=== PATIENT | female | born 1995 | race Caucasian/White ===

== ENCOUNTER 2019-04-22 15:17 | Emergency (ER) | payer BC ==
[2019-04-22 15:40] VITALS: BP 127/85
[2019-04-22 15:58] LABS: BASOPHILS # (AUTO) 0.1 10^3/uL (0.0-0.1); BASOPHILS % (AUTO) 0.6 %; EOSINOPHILS # (AUTO) 0.3 10^3/uL (0.0-0.7); HGB - HEMOGLOBIN 13.2 g/dL (12.0-16.0); LYMPHOCYTES % (AUTO) 24.5 %; MEAN CORPUSCULAR HEMOGLOBIN 32.1 pg (27.0-31.0); MEAN CORPUSCULAR HGB CONC 33.9 g/dL (32.0-36.0); MEAN CORPUSCULAR VOLUME 94.6 fL (81.0-99.0); MEAN PLATELET VOLUME 8.2 fL (7.9-10.8); MONOCYTES # (AUTO) 0.6 10^3/uL (0.0-1.0); MONOCYTES % (AUTO) 6.8 %; NEUTROPHILS # (AUTO) 5.4 10^3/uL (1.5-6.6); NEUTROPHILS % (AUTO) 64.7 %; PLT - PLATELET COUNT 229 10^3/uL (130-450); RED BLOOD COUNT 4.11 10^6/uL (4.20-5.40); RED CELL DISTRIBUTION WIDTH 12.9 % (12.0-15.0); WHITE BLOOD COUNT 8.3 x10^3/uL (4.8-10.8)
[2019-04-22 16:11] LABS: ALBUMIN 4.3 g/dL (3.2-5.5); ALBUMIN/GLOBULIN RATIO 1.3 (1.0-2.2); BILIRUBIN,TOTAL 0.9 mg/dL (0.2-1.0); CALCIUM 9.2 mg/dL (8.5-10.3); CREATININE 0.6 mg/dL (0.4-1.0); TOTAL PROTEIN 7.6 g/dL (6.7-8.2)
--- NOTE | 2019-04-22 17:16 | ED Physician Documentation ---
PD HPI FEMALE - Stated complaint Stated Complaint: FEMALE - POST OP - Chief complaint Chief Complaint: Abd Pain - History obtained from History obtained from: Patient - History of Present Illness Contributing factors: Recently seen: Clinic - Additional information Additional information: This is a 24-year-old who presents with complaints that on March 21 she made the decision to terminate a at [facility]. They treated her with a dose of medication in the office and then sent her home with a second dose today but after she got home she started to have second thoughts so waited over the 24-hour period before she took the second dose. After she had taken that second dose she got an episode where she was extremely lightheaded her ears were ringing she actually fell to the ground and a near syncopal episode. She was taken to the emergency department at [place]. She said at the time she had a lot of heavy vaginal bleeding but she was kind out of it so she is not even sure how much she bled or whether or not she passed any tissue and then it just seem to stopped. She was 6 weeks 3 days by ultrasound the time of the termination. A week ago she decided to do another test was a faint positive line and then she tried again today and was a definite positive urine test so she called and was told to come to the emergency department. She has been having some lower abdominal cramping. She took a test a week ago because she said that her breasts were still very tender and she felt like the symptoms from the had never really gone away even after the termination. Review of Systems Constitutional: denies: Fever GI: reports: Abdominal Pain (Cramping) : reports: Missed period. denies: Vaginal bleeding Endocrine: reports: Other (Breasts are tender) PD PAST MEDICAL HISTORY - Past Surgical History Past Surgical History: Yes HEENT: Tonsil/Adenoidectomy - Present Medications Home Medications: Ambulatory Orders Medication Instructions Recorded Confirmed Dextroamphetamine/Amphetamine 30 mg PO DAILY 04/22/19 04/22/19 [Adderall 30 mg Tablet] - Allergies Allergies/Adverse Reactions: Allergies Allergy/AdvReac Type Severity Reaction Status Date / Time amoxicillin Allergy Severe Unknown Verified 04/22/19 15:30 Penicillins Allergy Severe Unknown Verified 04/22/19 15:30 - Social History Does the pt smoke?: No Smoking Status: Never smoker Does the pt drink ETOH?: No Does the pt have substance abuse?: No - Immunizations Immunizations are current?: No Immunizations: TDAP >10years/unknown PD ED PE NORMAL - Vitals Vital signs reviewed: Yes - General General: Alert and oriented X 3, No acute distress, Well developed/nourished - HEENT HEENT: Atraumatic, Moist mucous membranes - Cardiac Cardiac: RRR - Respiratory Respiratory: No respiratory distress - Female Female : [employer] present, Other (Cervix is closed. There is no vaginal bleeding. On bimanual examination the uterus is not felt to be enlarged and there is no adnexal tenderness.) - Derm Derm: Normal color, Warm and dry, No rash - Neuro Neuro: Alert and oriented X 3, No motor deficit, No sensory deficit, Normal speech - Psych Psych: Normal mood, Normal affect Results - Vitals Vitals: Vital Signs - 24 hr 04/22/19 15:30 Temperature 37 C Heart Rate 84 Respiratory 18 Rate Blood Pressure 127/85 H O2 Saturation 100 Oxygen O2 Source Room air - Labs Labs: Laboratory Tests 04/22/19 04/22/19 04/22/19 15:50 15:52 15:52 WBC 8.3 RBC 4.11 L Hgb 13.2 Hct 38.9 MCV 94.6 MCH 32.1 H MCHC 33.9 RDW 12.9 Plt Count 229 MPV 8.2 Neut # (Auto) 5.4 Lymph # (Auto) 2.0 [place] # (Auto) 0.6 Eos # (Auto) 0.3 Baso # (Auto) 0.1 Absolute Nucleated RBC 0.00 Nucleated RBC % 0.0 Sodium 137 Potassium 3.4 L Chloride 102 Carbon Dioxide 24 Anion Gap 11.0 BUN 12 Creatinine 0.6 Estimated GFR (MDRD) 122 Glucose 89 Calcium 9.2 Total Bilirubin 0.9 AST 28 ALT 19 Alkaline Phosphatase 47 Total Protein 7.6 Albumin 4.3 Globulin 3.3 Albumin/Globulin Ratio 1.3 Lipase 52 H HCG, Quant Urine Color YELLOW Urine Clarity CLEAR Urine pH 5.5 Ur Specific [place] >=1.030 H Urine Protein NEGATIVE Urine Glucose (UA) NEGATIVE Urine Ketones 40 H Urine Occult Blood NEGATIVE Urine Nitrite NEGATIVE Urine Bilirubin NEGATIVE Urine Urobilinogen 0.2 (NORMAL) Ur Leukocyte Esterase NEGATIVE Ur Microscopic Review NOT INDICATED Urine Culture Comments NOT INDICATED Urine HCG, Qual POSITIVE Blood Type 04/22/19 04/22/19 15:52 17:15 WBC RBC Hgb Hct MCV MCH MCHC RDW Plt Count MPV Neut # (Auto) Lymph # (Auto) [place] # (Auto) Eos # (Auto) Baso # (Auto) Absolute Nucleated RBC Nucleated RBC % Sodium Potassium Chloride Carbon Dioxide Anion Gap BUN Creatinine Estimated GFR (MDRD) Glucose Calcium Total Bilirubin AST ALT Alkaline Phosphatase Total Protein Albumin Globulin Albumin/Globulin Ratio Lipase HCG, Quant 48232.00 Urine Color Urine Clarity Urine pH Ur Specific [place] Urine Protein Urine Glucose (UA) Urine Ketones Urine Occult Blood Urine Nitrite Urine Bilirubin Urine Urobilinogen Ur Leukocyte Esterase Ur Microscopic Review Urine Culture Comments Urine HCG, Qual Blood Type B POSITIVE PD MEDICAL DECISION MAKING - ED course Complexity details: d/w patient, d/w family ED course: The patient's quantitative hCG was over 34,000. I have ordered a pelvic ultrasound. I am still waiting on the Rh screen. Plan to turn care over for follow-up on the ultrasound. Departure - Departure Disposition: Home, Self Care Clinical Impression: Incomplete miscarriage Condition: Good Follow-Up: Tesha Bowles MD [Provider Admit Priv/Credential] - (Call for an appt tomorrow) Kenn Barth DO [Provider Admit Priv/Credential] - (Call for an appt tomorrow) Comments: Your ultrasound today shows a likely miscarriage, as there is no heartbeat seen in the fetus, and there is some bleeding In the uterus. However your level is still quite high, and it is possible that this just recently failed, or has abnormal growth. I think you need to be seen by an OB provider soon as possible, the OB clinic here states that they should be able to fit you in to the schedule tomorrow. Please call first thing in the morning for an appointment. If you are developing severe bleeding, severe pain that is not managed by [id number] medication such as Tylenol and ibuprofen, or any other concerning symptoms return to the emergency department Discharge Date/Time: 04/22/19 21:47
[2019-04-22 17:41] LABS: BILIRUBIN,URINE NEGATIVE (NEGATIVE); GLUCOSE, URINE (UA) NEGATIVE (NEGATIVE); KETONES,URINE (UA) 40 mg/dL (NEGATIVE); LEUKOCYTE ESTERASE, URINE NEGATIVE (NEGATIVE); NITRITE,URINE NEGATIVE (NEGATIVE); OCCULT BLOOD,URINE NEGATIVE (NEGATIVE); PH,URINE 5.5 PH (5.0-7.5); PROTEIN,URINE NEGATIVE (NEGATIVE); UROBILINOGEN,URINE 0.2 (NORMAL) E.U./dL (NORMAL)
[2019-04-22 17:45] LABS: CLARITY,URINE CLEAR (CLEAR); HCG UR QUAL POSITIVE
--- NOTE | 2019-04-22 20:19 | Ultrasound Report ---
Reason: Failed chemical Procedure Date: 04/22/2019 Accession Number: [id number] / [id number] Procedure: US - OB First Trimester CPT Code: Final Report FULL RESULT: EXAM: FIRST TRIMESTER OBSTETRIC ULTRASOUND (Less than 11 weeks) EXAM DATE: 04/22/2019 07:18 PM. CLINICAL HISTORY: Failed chemical . LMP: 02/04/2020. COMPARISONS: US OB < 14 WEEKS SINGLE OR FIRST GESTATION 03/15/2019 7:03 PM. TECHNIQUE: Transabdominal and transvaginal ultrasound examination with static image documentation. CLINICAL DATES: EGA 11 weeks 1 day with SIMON 11/10/2019 based on LMP. ASSESSMENT: Gestational Sac: Single intrauterine. Mean gestational sac diameter: 43 mm = 9 weeks 6 days. Embryo: CRL (crown-rump length) 5 mm = 6 weeks 1 day. Cardiac activity: No cardiac activity. Yolk sac: Not seen. Amniotic fluid: Not accurately assessed at this gestational age. Early placenta: Not visible at this gestational age. Other: Large subchorionic hemorrhage encircles at least two-thirds of the gestational sac site conference.. MATERNAL STRUCTURES: Uterus: Anteverted. Unremarkable. Cervix: Closed. Right Ovary/Adnexa: The ovary measures 3.3 x 3.2 x 2.8 cm, volume 15.7 cc. Right corpus luteal cyst.. Left Ovary/Adnexa: The ovary measures 2.7 1.3 x 1 cm, volume 1.8 cc. Unremarkable. Free Fluid: None. Other: None. IMPRESSION: 1. Single intrauterine gestational sac and pole measuring 5 mm. No yolk sac identified. No cardiac activity. Large subchorionic hemorrhage. Findings consistent with of uncertain viability, but poor prognosis. Recommend [facility] consultation and follow-up ultrasound in 7 days. RADIA
== END 2019-04-22 21:47 | disposition home or self-care (01) ==
LOC: ED 15:17
DX: O07.39 Failed attempted termination of pregnancy with other complications (principal); R10.9 Unspecified abdominal pain
CPT/HCPCS: 36415; 76801; 76817; 80053; 81001; 81003; 81025; 83690; 84702; 85025; 86900; 86901; 87086; 99282; 99283

== ENCOUNTER 2019-04-24 08:43 | Day surgery (SDC) | payer BC ==
[2019-04-24] MEDS ORDERED: DEXAMETHASONE 4 MG/ML VIAL IVP ONE (08:44)
[2019-04-24] MEDS ORDERED: LIDOCAINE 2% 10 ML MDV SUBQ ONE (08:44)
[2019-04-24] MEDS ORDERED: OXYTOCIN 10 UNIT/ML VIAL IV ONE (08:44)
[2019-04-24] MEDS ORDERED: ePHEDrine 50 MG/ML VIAL IVP ONE (08:44)
[2019-04-24] MEDS ORDERED: ACETAMINOPHEN 1,000 MG/100 ML VIAL IV ONE (08:44)
[2019-04-24] MEDS ORDERED: fentaNYL 100 MCG/2 ML VIAL IVP ONE (08:44)
[2019-04-24] MEDS ORDERED: MIDAZOLAM 2 MG/2 ML VIAL IVP ONE (08:44)
[2019-04-24] MEDS ORDERED: PROPOFOL 200 MG/20 ML VIAL IVP ONE (08:44)
[2019-04-24] MEDS ORDERED: LACTATED RINGERS 1,000 ML IV ONE ×2 (08:55→13:22)
[2019-04-24] MEDS ORDERED: LIDOCAINE 1%-EPI 1:100000 20 ML MDV ONE (09:06)
--- NOTE | 2019-04-24 09:38 | ANESTHESIA ---
Pre-Anesthesia VS, & Labs - Diagnosis missed - Procedure suction DnC Vital Signs: Temp Pulse Resp BP Pulse Ox 37.3 C 81 14 117/78 99 04/24/19 08:55 04/24/19 08:55 04/24/19 08:55 04/24/19 08:55 04/24/19 08:55 Height 5 ft 3 in Body Mass Index 24.4 - Is Patient ?: No Home Medications and Allergies Dextroamphetamine/Amphetamine [Adderall 30 mg Tablet] 30 mg PO DAILY 04/22/19 Allergies/Adverse Reactions: Allergies Allergy/AdvReac Type Severity Reaction Status Date / Time amoxicillin Allergy Severe Unknown Verified 04/24/19 09:36 Penicillins Allergy Severe Unknown Verified 04/24/19 09:36 Anes History & Medical History - Anesthetic History Anesthesia Complications: reports: No previous complications Family history of Anesthesia Complications: Denies Family history of Malignant Hyperthermia: Denies - Medical History Cardiovascular: reports: None Pulmonary: reports: None Gastrointestinal: reports: None Urinary: reports: Incontinence Neuro: reports: None Musculoskeletal: reports: None Endocrine/Autoimmune: reports: None Blood Disorders: reports: None Skin: reports: None Smoking Status: Never smoker Psychosocial: reports: Alcohol (2 to 3 beers a day) - Surgical History Eyes Ears Nose Throat (EENT): Tonsil/Adenoidectomy Exam General: Alert, Oriented x3, Cooperative, No acute distress Dental: WNL Mouth Openin Fingerbreadth Neck Mobility: Normal Mallampati classification: II Thyromental Distance: 4-6 cm Respiratory: Lungs clear, Normal breath sounds, No respiratory distress, No accessory muscle use Cardiovascular: Regular rate, Normal S1, Normal S2, No murmurs Abdomen: Normal bowel sounds, Soft, No tenderness, No hepatospenomegaly, No masses Extremities: No clubbing, No cyanosis, No edema, Normal pulses, No tenderness/swelling Neurological: Normal gait, Normal speech, Strength at 5/5 X4 ext, Normal tone, Sensation intact, Cranial nerves 3-12 NL, Reflexes 2+ Mental/Cognitive Status: Alert/Oriented X3, Normal for patient Cognitive Status: Within normal limits Plan Anesthesia Type: General Consent for Procedure(s) Verified and Reviewed: Yes Code Status: Attempt Resuscitation ASA classification: 1-Healthy patient Is this case an emergency?: No
[2019-04-24 09:45] LABS: BASOPHILS % (AUTO) 0.8 %; EOSINOPHILS # (AUTO) 0.4 10^3/uL (0.0-0.7); EOSINOPHILS % (AUTO) 7.9 %; HGB - HEMOGLOBIN 11.8 g/dL (12.0-16.0); LYMPHOCYTES # (AUTO) 1.8 10^3/uL (1.5-3.5); LYMPHOCYTES % (AUTO) 36.5 %; MEAN CORPUSCULAR HEMOGLOBIN 31.2 pg (27.0-31.0); MEAN CORPUSCULAR HGB CONC 33.1 g/dL (32.0-36.0); MEAN CORPUSCULAR VOLUME 94.2 fL (81.0-99.0); MEAN PLATELET VOLUME 8.3 fL (7.9-10.8); MONOCYTES # (AUTO) 0.3 10^3/uL (0.0-1.0); MONOCYTES % (AUTO) 7.1 %; NEUTROPHILS # (AUTO) 2.3 10^3/uL (1.5-6.6); NEUTROPHILS % (AUTO) 47.5 %; PLT - PLATELET COUNT 183 10^3/uL (130-450); RED BLOOD COUNT 3.78 10^6/uL (4.20-5.40); WHITE BLOOD COUNT 4.8 x10^3/uL (4.8-10.8)
[2019-04-24] MEDS ORDERED: HYDROcod/ACETAM 5/325 MG TABLET PO PRN (13:33)
[2019-04-24] MEDS ORDERED: ONDANSETRON 4 MG/2 ML VIAL IVP PRN (13:33)
[2019-04-24] MEDS ORDERED: LORazepam 0.5 MG TABLET PO PRN (13:38)
[2019-04-24] MEDS ORDERED: DOXYCYCLINE 100 MG TABLET PO SCH (14:00)
[2019-04-24] MEDS ORDERED: DOXYCYCLINE 100 MG TABLET PO ONE (14:35)
[2019-04-24] MEDS ORDERED: HYDROcod/ACETAM 5/325 MG TABLET ONE (14:35)
[2019-04-24] MEDS ORDERED: LORazepam 0.5 MG TABLET ONE (14:43)
[2019-04-24] MEDS ORDERED: ONDANSETRON 4 MG/2 ML VIAL ONE (14:58)
[2019-04-24 15:39] VITALS: BP 110/62
--- NOTE | 2019-04-24 15:46 | OPERATIVE REPORT ---
DATE OF SERVICE: 04/24/2019 Physician: Kenn Barth DO POSTOPERATIVE DIAGNOSIS: Missed . POSTOPERATIVE DIAGNOSIS: Missed PROCEDURE: Suction dilation and evacuation. SURGEON: Kenn Barth DO. ANESTHESIA: General. ESTIMATED BLOOD LOSS: 300 mL. WOUND CLASSIFICATION: 2. COUNTS: Sponge count was correct. Needle count was not indicated. SURGICAL FINDINGS: The uterus sounded initially to a depth of 12 cm. The cervical os was closed. PROCEDURE IN DETAIL: The patient was taken to the operative suite, placed on the surgical table in s upine position. Under general anesthesia, she was placed in Jun stirrups, prepped and draped in th e usual fashion. At this point in time, a timeout took place. Once timeout was completed, The weigh armin speculum was placed in the vaginal vault and the cervix visualized. A single-tooth tenaculum was placed onto the anterior lip of the cervix. The uterus was then sounded to a depth of 12 cm. The c ervix was dilated to 8 mm. An 8 mm suction curette was then extended through the straightened endoce rvical canal into the endometrial cavity. This indeed emptied the contents of the endometrial cavity . Polyp forceps were then used to explore the cavity. There were some other small pieces that the p olyp forceps did evacuate. The suction curette was then again placed into the uterus and no further tissue was evacuated. The uterus was now beginning to clamp down firmly. The single-tooth tenaculum was removed from the anterior lip of the cervix. No signs of bleeding were noted. Hemostasis follo wed. The weighted speculum was removed from the vaginal vault. The vaginal vault was then cleared o f all blood clots and debris. The patient was then taken to recovery room in stable condition. TD: 04/24/2019 14:02
== END 2019-04-24 08:44 | disposition home or self-care (01) ==
LOC: SDS 08:43
PROVIDERS: ATTEND Obstetrics & Gynecology
PROC: 10D17Z9 Manual Extraction of Products of Conception, Retained, Via Natural or Artificial Opening (ICD-10-PCS; principal; 2019-04-24 11:15)
DX: O02.1 Missed abortion (principal)
CPT/HCPCS: 36415; 59820; 85025; A9270; J0131; J7120

== ENCOUNTER 2019-04-26 07:00 | Outpatient (CLI) | payer BC ==
[2019-04-26 18:34] LABS: TRICHOMONAS VAGINALIS DNA NEGATIVE (NEGATIVE)
== END 2019-04-26 23:59 | disposition home or self-care (01) ==
LOC: LAB.R 07:00
PROVIDERS: ATTEND Obstetrics & Gynecology
DX: O02.1 Missed abortion (principal)
CPT/HCPCS: 87491; 87591; 87661

== ENCOUNTER 2019-05-09 08:00 | Outpatient (CLI) | payer BC, MEDICAID ==
[2019-05-10 22:29] LABS: TRICHOMONAS VAGINALIS DNA INDETERMINATE (NEGATIVE)
== END 2019-05-09 23:59 | disposition home or self-care (01) ==
LOC: LAB.R 08:00
PROVIDERS: ATTEND Obstetrics & Gynecology
DX: N73.9 Female pelvic inflammatory disease, unspecified (principal)
CPT/HCPCS: 87491; 87591; 87661

== ENCOUNTER 2019-05-09 19:56 | Outpatient (CLI) | payer BC, MEDICAID ==
[2019-05-09 21:35] LABS: BASOPHILS # (AUTO) 0.1 10^3/uL (0.0-0.1); EOSINOPHILS # (AUTO) 0.5 10^3/uL (0.0-0.7); EOSINOPHILS % (AUTO) 7.2 %; LYMPHOCYTES # (AUTO) 2.8 10^3/uL (1.5-3.5); LYMPHOCYTES % (AUTO) 41.9 %; MEAN PLATELET VOLUME 8.4 fL (7.9-10.8); MONOCYTES # (AUTO) 0.5 10^3/uL (0.0-1.0); MONOCYTES % (AUTO) 7.2 %; NEUTROPHILS # (AUTO) 2.9 10^3/uL (1.5-6.6); NEUTROPHILS % (AUTO) 42.6 %; PLT - PLATELET COUNT 256 10^3/uL (130-450); RED BLOOD COUNT 4.06 10^6/uL (4.20-5.40); RED CELL DISTRIBUTION WIDTH 12.5 % (12.0-15.0); WHITE BLOOD COUNT 6.7 x10^3/uL (4.8-10.8)
--- NOTE | 2019-05-09 21:52 | Ultrasound Report ---
Reason: POSTOPERATIVE PAIN, MISSED Procedure Date: 05/09/2019 Accession Number: [id number] / [id number] Procedure: US - Pelvic w/Transvaginal CPT Code: Final Report FULL RESULT: EXAM: PELVIC ULTRASOUND EXAM DATE: 05/09/2019 09:12 PM. CLINICAL HISTORY: Postoperative pain, missed . Postoperative pain, missed , retained product of conception. COMPARISON: 04/22/2019. TECHNIQUE: Realtime transabdominal pelvic scan performed to identify the uterus and adnexa and as an overview of other pelvic structures, followed by transvaginal scan to provide greater detail of the uterus and adnexa, with static image documentation. FINDINGS: Uterus: 7.3 x 3.8 x 4.8 cm, volume 71 cc. Normal position. Normal overall size and echotexture. Masses: None. Endometrium: Endometrial cavity is distended with heterogeneous fluid with some echogenic internal debris. No internal blood flow. Endometrial complex measures 7 mm in the thickness. Cervix: Unremarkable. Right Ovary: 3.8 x 2.6 x 2.6 cm, volume 13.6 cc. Normal echotexture and blood flow. Left Ovary: 3.2 x 1.9 x 2.2 cm, volume 6.6 cc. 11 mm dominant follicle noted. Normal echotexture and blood flow. Free Fluid: Trace amount of free fluid in the pelvis, within physiologic limits. Other: None. IMPRESSION: Small amount of complex within the endometrial canal, probably postoperative. No internal vascularity noted to suggest retained product of conception. No suspicious adnexal lesion. Physiologic appearance of the ovaries. RADIA The call report notification system was initiated by Dr. Rahul Rebolledo at 09:51 PM on 05/09/2019. The above call report findings were discussed with Dennise Dukes by Dr. Rahul Rebolledo at 09:55 PM on 05/09/2019.
== END 2019-05-09 19:57 | disposition home or self-care (01) ==
LOC: DI 19:56
PROVIDERS: ATTEND Obstetrics & Gynecology
DX: O02.1 Missed abortion (principal); G89.18 Other acute postprocedural pain; N73.9 Female pelvic inflammatory disease, unspecified
CPT/HCPCS: 76830; 76856; 84702; 85025; 87491; 87591; 87661

== ENCOUNTER 2020-01-22 07:00 | Outpatient (CLI) | payer BC, MEDICAID | END 2020-01-22 23:59 | disposition home or self-care (01) | LOC: LAB.R 07:00 | PROVIDERS: ATTEND Nurse Practitioner Family | DX: R30.0 Dysuria (principal) | CPT/HCPCS: 87086 ==

== ENCOUNTER 2020-01-22 07:00 | Outpatient (CLI) | payer BC, MEDICAID | END 2020-01-22 23:59 | disposition home or self-care (01) | LOC: LAB.R 07:00 | PROVIDERS: ATTEND Nurse Practitioner Family | DX: R06.02 Shortness of breath (principal); Z20.828 Contact with and (suspected) exposure to other viral communicable diseases; R30.0 Dysuria | CPT/HCPCS: 87086 ==

== ENCOUNTER 2020-02-24 16:48 | Outpatient (CLI) | payer BC, MEDICAID ==
[2020-02-24 17:10] LABS: MEAN CORPUSCULAR HEMOGLOBIN 32.4 pg (27.0-31.0); MEAN CORPUSCULAR HGB CONC 34.1 g/dL (32.0-36.0); MEAN CORPUSCULAR VOLUME 95.1 fL (81.0-99.0); MEAN PLATELET VOLUME 8.4 fL (7.9-10.8); RED BLOOD COUNT 4.32 10^6/uL (4.20-5.40); RED CELL DISTRIBUTION WIDTH 12.3 % (12.0-15.0); WHITE BLOOD COUNT 6.4 x10^3/uL (4.8-10.8)
[2020-02-24 17:32] LABS: ALBUMIN 4.3 g/dL (3.2-5.5); ALBUMIN/GLOBULIN RATIO 1.4 (1.0-2.2); BILIRUBIN,TOTAL 1.3 mg/dL (0.2-1.0); CALCIUM 9.7 mg/dL (8.5-10.3); CREATININE 0.6 mg/dL (0.4-1.0); TOTAL PROTEIN 7.3 g/dL (6.7-8.2)
[2020-02-24 22:04] LABS: HEMOGLOBIN A1c% 4.6 % (4.27-6.07)
== END 2020-02-24 16:49 | disposition home or self-care (01) ==
LOC: LAB 16:48
PROVIDERS: ATTEND Obstetrics & Gynecology
DX: R10.2 Pelvic and perineal pain (principal); R06.02 Shortness of breath; Z20.828 Contact with and (suspected) exposure to other viral communicable diseases; F10.99 Alcohol use, unspecified with unspecified alcohol-induced disorder; R73.9 Hyperglycemia, unspecified; O03.9 Complete or unspecified spontaneous abortion without complication; R30.0 Dysuria
CPT/HCPCS: 36415; 80053; 83036; 84702; 85027; 87086

== ENCOUNTER 2020-03-31 15:54 | Emergency (ER) | payer BC, MEDICAID ==
[2020-03-31] MEDS ORDERED: SODIUM CHLORIDE 0.9% 1,000 ML IV STA (17:22)
[2020-03-31] MEDS ORDERED: HYDROmorphone 1 MG/ML CARPUJECT IVP STA (17:22)
--- NOTE | 2020-03-31 17:25 | ED Physician Documentation ---
History of Present Illness - Stated complaint Stated Complaint: FEVER/SOA - Chief complaint Chief Complaint: Fever - History obtained from History obtained from: Patient - Additonal information Additional information: 25-year-old female comes to the emergency department with 1 week of sore throat, chest pain, painful swallow and pleuritic chest pain. She reports that over the weekend she was seen at the [facility] and had a chest x-ray and a Covid test completed. She believes that they were normal. She reports the pain is so bad in her throat that she cannot swallow. When she does attempt to swallow pain radiates to her back. She has had fevers at home (up to 103). No nausea or vomiting. no dysuria, urgency or frequency. Denies possibility of has an IUD in place. She has no history of DVT or pulmonary embolus. no unilateral leg swelling or calf pain tenderness. Pt thinks someone in her family may have of a blood clot; she is unsure who it was Patient reports that she does have a history of heavy alcohol use. No drinking for 3 days. She did typically drink 5-7 beers a day. Her hope is to go into alcohol rehab for at least 30 days as soon as she is medically cleared. She denies any hx seizure or DT when she stops drinking meds: wellbutrin, adderal, melatonin Review of Systems Constitutional: reports: Fever, Myalgias Eyes: reports: Reviewed and negative Ears: reports: Reviewed and negative Nose: reports: Reviewed and negative Throat: reports: Sore throat. denies: Swollen tonsils Cardiac: reports: Chest pain / pressure. denies: Palpitations, Pedal edema, Calf pain Respiratory: reports: Reviewed and negative. denies: Dyspnea, Cough GI: reports: Reviewed and negative. denies: Abdominal Pain, Nausea, Vomiting : reports: Reviewed and negative. denies: Dysuria, Frequency, Hesitancy Skin: reports: Reviewed and negative Musculoskeletal: reports: Reviewed and negative Neurologic: reports: Reviewed and negative PD PAST MEDICAL HISTORY - Past Medical History Cardiovascular: None Respiratory: None Neuro: None Endocrine/Autoimmune: None GI: None : Incontinence HEENT: None Psych: Anxiety, ADD/ADHD Musculoskeletal: None Derm: None - Past Surgical History Past Surgical History: Yes HEENT: Tonsil/Adenoidectomy - Present Medications Home Medications: Ambulatory Orders Medication Instructions Recorded Confirmed Dextroamphetamine/Amphetamine 30 mg PO DAILY 04/22/19 04/24/19 [Adderall 30 mg Tablet] Apixaban [Eliquis] 5 mg PO BID #90 tablet 03/31/20 HYDROcod/ACETAM 5/325 [[place] 5/325] 1 each PO BID PRN #10 tablet 03/31/20 LORazepam [Ativan] 1 mg PO ONCE PRN #8 tablet 03/31/20 - Allergies Allergies/Adverse Reactions: Allergies Allergy/AdvReac Type Severity Reaction Status Date / Time amoxicillin Allergy Severe Unknown Verified 03/31/20 16:14 Penicillins Allergy Severe Unknown Verified 03/31/20 16:14 - Social History Does the pt smoke?: No Smoking Status: Never smoker Does the pt drink ETOH?: No Does the pt have substance abuse?: No - Immunizations Immunizations are current?: No Immunizations: TDAP >10years/unknown PD ED PE EXPANDED - General General: Alert, No acute distress, Well developed/nourished - HEENT HEENT: Atraumatic, PERRL, Pharyngeal erythema (Erythematous posterior oropharynx without tonsillar exudate. Uvula is midline. Normal phonation and swallow. Full range of motion of neck and all planes). No: Swollen tonsils, Tonsillar exudate, Oral lesions / sores - Eyes Eyes: PERRL, Normal accommodation - Neck Neck: Supple w/out meningeal sx. No: Adenopathy - Cardiac Cardiac: Regular Rate, Regular Rhythm, Radial strong equal, Pedal strong equal, Cap refill < 2 sec - Respiratory Respiratory: Clear to ausultation eve. No: Distress, Labored - Abdomen Abdomen: Normal Bowel sounds. No: Tender to palpation - Derm Derm: Normal color. No: Petecchiae, Purpura - Extremities Extremities: Normal - Neuro Neuro: Alert and Oriented X 3, CNII-XII intact - GCS Eye Opening: Spontaneous Motor: Obeys Commands Verbal: Oriented Total: 15 Results - Vitals Vitals: Vital Signs - 24 hr 03/31/20 03/31/20 16:07 17:46 Temperature 98.3 C H Heart Rate 93 93 Respiratory 14 18 Rate Blood Pressure 119/78 122/83 H O2 Saturation 100 100 Oxygen O2 Source Room air - Labs Labs: Laboratory Tests 03/31/20 03/31/20 03/31/20 17:17 17:37 17:37 WBC 6.5 RBC 4.59 Hgb 14.8 Hct 43.6 MCV 95.0 MCH 32.2 H MCHC 33.9 RDW 12.5 Plt Count 157 MPV 8.6 Neut # (Auto) 4.5 Lymph # (Auto) 1.1 L [place] # (Auto) 0.7 Eos # (Auto) 0.1 Baso # (Auto) 0.0 Absolute Nucleated RBC 0.00 Nucleated RBC % 0.0 D-Dimer 368.7 H Sodium Potassium Chloride Carbon Dioxide Anion Gap BUN Creatinine Estimated GFR (MDRD) Glucose Calcium Total Bilirubin AST ALT Alkaline Phosphatase Troponin I High Sens Total Protein Albumin Globulin Albumin/Globulin Ratio Lipase Urine Color YELLOW Urine Clarity CLOUDY Urine pH 5.5 Ur Specific [place] >=1.030 H Urine Protein 30 H Urine Glucose (UA) NEGATIVE Urine Ketones 40 H Urine Occult Blood MODERATE H Urine Nitrite NEGATIVE Urine Bilirubin NEGATIVE Urine Urobilinogen 0.2 (NORMAL) Ur Leukocyte Esterase NEGATIVE Urine RBC 0-5 Urine WBC 0-3 Ur Squamous Epith Cells MANY Squamous H Urine Bacteria Many H Urine HCG, Qual NEGATIVE Nasal Adenovirus (PCR) Nasal B. parapertussis DNA (PCR) Nasal Coronavir 229E PCR Nasal Coronavir HKU1 PCR Nasal Coronavir NL63 PCR Nasal Coronavir OC43 PCR Nasal Enterovir/Rhinovir PCR Nasal Influenza B PCR Nasal Influenza A PCR Nasal Parainfluen 1 PCR Nasal Parainfluen 2 PCR Nasal Parainfluen 3 PCR Nasal Parainfluen 4 PCR Nasal RSV (PCR) Nasal B.pertussis DNA PCR Nasal C.pneumoniae (PCR) Arnaud Human Metapneumo PCR Nasal M.pneumoniae (PCR) Nasal SARS-CoV-2 (PCR) Group A Strep Rapid 03/31/20 03/31/20 03/31/20 17:37 17:37 17:37 WBC RBC Hgb Hct MCV MCH MCHC RDW Plt Count MPV Neut # (Auto) Lymph # (Auto) [place] # (Auto) Eos # (Auto) Baso # (Auto) Absolute Nucleated RBC Nucleated RBC % D-Dimer Sodium 137 Potassium 3.6 Chloride 99 L Carbon Dioxide 25 Anion Gap 13.0 BUN 10 Creatinine 0.7 Estimated GFR (MDRD) 101 Glucose 81 Calcium 8.9 Total Bilirubin 0.9 AST 35 ALT 40 Alkaline Phosphatase 64 Troponin I High Sens < 2.3 L Total Protein 7.8 Albumin 4.3 Globulin 3.5 Albumin/Globulin Ratio 1.2 Lipase 33 Urine Color Urine Clarity Urine pH Ur Specific [place] Urine Protein Urine Glucose (UA) Urine Ketones Urine Occult Blood Urine Nitrite Urine Bilirubin Urine Urobilinogen Ur Leukocyte Esterase Urine RBC Urine WBC Ur Squamous Epith Cells Urine Bacteria Urine HCG, Qual Nasal Adenovirus (PCR) Nasal B. parapertussis DNA (PCR) Nasal Coronavir 229E PCR Nasal Coronavir HKU1 PCR Nasal Coronavir NL63 PCR Nasal Coronavir OC43 PCR Nasal Enterovir/Rhinovir PCR Nasal Influenza B PCR Nasal Influenza A PCR Nasal Parainfluen 1 PCR Nasal Parainfluen 2 PCR Nasal Parainfluen 3 PCR Nasal Parainfluen 4 PCR Nasal RSV (PCR) Nasal B.pertussis DNA PCR Nasal C.pneumoniae (PCR) Arnaud Human Metapneumo PCR Nasal M.pneumoniae (PCR) Nasal SARS-CoV-2 (PCR) Group A Strep Rapid Negative 03/31/20 17:37 WBC RBC Hgb Hct MCV MCH MCHC RDW Plt Count MPV Neut # (Auto) Lymph # (Auto) [place] # (Auto) Eos # (Auto) Baso # (Auto) Absolute Nucleated RBC Nucleated RBC % D-Dimer Sodium Potassium Chloride Carbon Dioxide Anion Gap BUN Creatinine Estimated GFR (MDRD) Glucose Calcium Total Bilirubin AST ALT Alkaline Phosphatase Troponin I High Sens Total Protein Albumin Globulin Albumin/Globulin Ratio Lipase Urine Color Urine Clarity Urine pH Ur Specific [place] Urine Protein Urine Glucose (UA) Urine Ketones Urine Occult Blood Urine Nitrite Urine Bilirubin Urine Urobilinogen Ur Leukocyte Esterase Urine RBC Urine WBC Ur Squamous Epith Cells Urine Bacteria Urine HCG, Qual Nasal Adenovirus (PCR) NOT DETECTED Nasal B. parapertussis DNA (PCR) NOT DETECTED Nasal Coronavir 229E PCR NOT DETECTED Nasal Coronavir HKU1 PCR NOT DETECTED Nasal Coronavir NL63 PCR NOT DETECTED Nasal Coronavir OC43 PCR NOT DETECTED Nasal Enterovir/Rhinovir PCR NOT DETECTED Nasal Influenza B PCR NOT DETECTED Nasal Influenza A PCR NOT DETECTED Nasal Parainfluen 1 PCR NOT DETECTED Nasal Parainfluen 2 PCR NOT DETECTED Nasal Parainfluen 3 PCR NOT DETECTED Nasal Parainfluen 4 PCR NOT DETECTED Nasal RSV (PCR) NOT DETECTED Nasal B.pertussis DNA PCR NOT DETECTED Nasal C.pneumoniae (PCR) NOT DETECTED Arnaud Human Metapneumo PCR NOT DETECTED Nasal M.pneumoniae (PCR) NOT DETECTED Nasal SARS-CoV-2 (PCR) NOT DETECTED Group A Strep Rapid - Rads (name of study) CXR Radiology: Final report received (No acute cardiopulmonary process) CT angio chest Radiology: Final report received (No central pulmonary embolism. However there are several segmental branches within the lower lobes as well as the right upper lobes demonstrating central low-attenuation raising suspicious for embolism) US DVT Radiology: See rad report, Other (Technologist notes indicate no acute DVT is seen) PD MEDICAL DECISION MAKING - ED course Complexity details: reviewed results, re-evaluated patient, considered differential, d/w patient, d/w family ED course: 25-year-old female presents to the emergency department with about 1 week of sore throat, fevers at home and pleuritic chest pain. She had been seen by the [facility] recently and had negative chest x-ray and Covid testing. Today here in the emergency department her respiratory PCR panel is negative. Chest x-ray shows no acute infiltrates. EKG and troponin are unremarkable. She is not hypoxic or tachypneic. However she was fairly clear to this provider that it hurt to take a very deep breath. Therefore a D-dimer was completed. Unfortunately the D-dimer is elevated (368.7 ng/ml) therefore we have proceeded to CT angio of the chest to r/o PE. 2000: CT pulmonary angiography of the chest is somewhat suggestive that she may have several segmental branches within the lower lobes and right upper lobes of her lungs with low attenuation which raises suspicion for pulmonary embolism. Patient reports to me that she has no previous history of blood clots or cancer. She believes that a family member may have due to a blood clot but she is unsure of whom it was. I have discussed this case with the nocturnal hospitalist Dr. Zuñiga. We will complete a DVT ultrasound to rule out significant clot burden burden in her legs or IVC. However at this point we would likely start her on oral anticoagulation with Eliquis. This should be continued for a minimum of 3 months. At that time she should be seen by a private investigator to have studies completed to rule out hypercoagulable syndrome such as antiphospholipid. Reassuringly her PESI score 46, indicating a very low risk of 30 day mortality in this group. May consider outpatient VQ scan to be compl eted through her pcp 2030: I have spent a fair amount of time at the bedise with the patient and her partner in the room discussing labs and imaging studies, including the plan for US DVT to r/o significant clot burden. We discussed risks and benefits extensively regarding DOAC's. specifically to avoid further etoh use and to be cautious with with falls or blunt trauma 2200: I have been notified by the tech that the ultrasound shows no acute thrombus in lower extremities. I again spent a significant amount of time with the patient and her boyfriend at the bedside discussing the suspicion for pulmonary embolism seen on CAT scan. Also discussed that we would initiate Eliquis as an anticoagulant. Patient is quite anxious and nervous. She would like to be admitted overnight just to make sure she is okay but there is no clinical indication for admission at this time. I have given her 1 mg of Ativan for anxiety. She does not appear to be in alcohol withdrawal. Her first dose of eliquis was given this evening the ED. In addition, secondary to pain I have rx a very limited number of norco. Pt is quite anxious, therefore a small amount of ativan was also ordered. Emergent return precautions discussed Departure - Departure Disposition: 01 Home, Self Care Clinical Impression: Pulmonary embolus Qualifiers: Pulmonary embolism type: multiple subsegmental (without acute cor pulmonale) Qualified Code(s): I26.94 - Multiple subsegmental pulmonary emboli without acute cor pulmonale Condition: Stable Record reviewed to determine appropriate education?: Yes Instructions: Embolism Pulmonary Dc Follow-Up: VALERIE HUNG, MSN, PROJECT ACCOUNTANT [Credentialed Staff Provider] - Prescriptions: LORazepam [Ativan] 1 mg PO ONCE PRN #8 tablet PRN Reason: Anxiety Apixaban [Eliquis] 5 mg PO BID #90 tablet HYDROcod/ACETAM 5/325 [[place] 5/325] 1 each PO BID PRN #10 tablet PRN Reason: Pain Comments: Glenys the CT of your lungs shows that you most likely have multiple subsegmental pulmonary embolus in both the right and left lung. We are not sure why you have developed the pulmonary embolus but it is important that you take the medication prescribed to help prevent further clots from forming. The ultrasound of your lower legs did not show any blood clots Please begin taking the Eliquis as prescribed. Initially you will take 10 mg twice a day for 1 week then you will take 5 mg twice a day. I am prescribing 5 mg tablets. It is critical that you schedule close follow-up with your primary care provider to discuss this new diagnosis. You likely need to be on this medication for at least 3 months. Following being on the medication for 3 months your medication may be stopped either through a private investigator or your primary doctor and further testing is indicated for work-up of a hypercoagulable syndrome such as antiphospholipid syndrome. Your primary doctor can also consider ordering a VQ scan as an outpatient to further look at your lungs. Please be very careful when taking this medication. Do not drink alcohol while taking this medication. Do not take medications like ibuprofen, advil or aleve. They will put you at increased risk of bleeding. You should not get while taking this medication. You have to be very careful if you have any falls or trauma as that could cause serious bleeding. Return immediately to the emergency department if you notice black or bloody stools, have blood in your urine, have excessive unexplained bruising or a suddenly severe headache. Your primary provider will need to give you the medical clearance to enter in to alcohol rehab next week. Please call the primary office and ask for close follow up of this ED vist within the next week. Let them know that you have been diagnosed with a pulmonary embolus
[2020-03-31 17:28] LABS: GLUCOSE, URINE (UA) NEGATIVE (NEGATIVE); KETONES,URINE (UA) 40 mg/dL (NEGATIVE); LEUKOCYTE ESTERASE, URINE NEGATIVE (NEGATIVE); NITRITE,URINE NEGATIVE (NEGATIVE); OCCULT BLOOD,URINE MODERATE (NEGATIVE); PH,URINE 5.5 PH (5.0-7.5); PROTEIN,URINE 30 mg/dL (NEGATIVE); UROBILINOGEN,URINE 0.2 (NORMAL) E.U./dL (NORMAL)
[2020-03-31 17:34] LABS: BILIRUBIN,URINE NEGATIVE (NEGATIVE); CLARITY,URINE CLOUDY (CLEAR); ICTOTEST,URINE NEGATIVE
[2020-03-31 17:40] LABS: BACTERIA,URINE Many /HPF (None Seen); HCG UR QUAL NEGATIVE; RBC,URINE 0-5 /HPF (0-5); SQUAMOUS EPITHELIAL CELL,UR MANY Squamous (<= Few)
[2020-03-31 17:52] LABS: BASOPHILS % (AUTO) 0.3 %; EOSINOPHILS # (AUTO) 0.1 10^3/uL (0.0-0.7); EOSINOPHILS % (AUTO) 1.1 %; HGB - HEMOGLOBIN 14.8 g/dL (12.0-16.0); LYMPHOCYTES # (AUTO) 1.1 10^3/uL (1.5-3.5); LYMPHOCYTES % (AUTO) 16.7 %; MEAN CORPUSCULAR HEMOGLOBIN 32.2 pg (27.0-31.0); MEAN CORPUSCULAR HGB CONC 33.9 g/dL (32.0-36.0); MEAN PLATELET VOLUME 8.6 fL (7.9-10.8); MONOCYTES # (AUTO) 0.7 10^3/uL (0.0-1.0); MONOCYTES % (AUTO) 11.3 %; NEUTROPHILS # (AUTO) 4.5 10^3/uL (1.5-6.6); NEUTROPHILS % (AUTO) 70.3 %; PLT - PLATELET COUNT 157 10^3/uL (130-450); RED BLOOD COUNT 4.59 10^6/uL (4.20-5.40); RED CELL DISTRIBUTION WIDTH 12.5 % (12.0-15.0); WHITE BLOOD COUNT 6.5 x10^3/uL (4.8-10.8)
--- NOTE | 2020-03-31 17:52 | XRAY Report ---
PROCEDURE: Chest 1 View X-Ray INDICATIONS: chest pain TECHNIQUE: One view of the chest was acquired. COMPARISON: None FINDINGS: Surgical changes and devices: None. Lungs and pleura: No pleural effusions or pneumothorax. Lungs are clear. Mediastinum: Mediastinal contours appear normal. Heart size is normal. Bones and chest wall: No suspicious bony lesions. Overlying soft tissues appear unremarkable. IMPRESSION: No acute cardiopulmonary pathology. Reviewed by: Travis Martinez MD on 03/31/2020 4:51 PM [facility] Approved by: Travis Martinez MD on 03/31/2020 4:51 PM [facility] Station ID: [id number]
[2020-03-31 18:03] LABS: ALBUMIN 4.3 g/dL (3.2-5.5); ALBUMIN/GLOBULIN RATIO 1.2 (1.0-2.2); BILIRUBIN,TOTAL 0.9 mg/dL (0.2-1.0); CALCIUM 8.9 mg/dL (8.5-10.3); CREATININE 0.7 mg/dL (0.4-1.0); TOTAL PROTEIN 7.8 g/dL (6.7-8.2)
[2020-03-31 18:08] LABS: RAPID STREP SCREEN Negative (Negative)
[2020-03-31 18:49] LABS: C. PNEUMONIAE- RESP PCR PANEL NOT DETECTED
[2020-03-31] MEDS ORDERED: LIDOCAINE VISCOUS 2% 15 ML UDC MM STA (19:18)
[2020-03-31] MEDS ORDERED: IOVERSOL 320 100 ML VIAL IVP ONE ×2 (19:26→19:45)
--- NOTE | 2020-03-31 19:59 | CT Report ---
PROCEDURE: ANGIO CHEST W/WO INDICATIONS: Elevated d-dimer; pleuritic chest pain CONTRAST: IV CONTRAST: Optiray 320 ml: 80 PO CONTRAST: *NO PO CONTRAST TECHNIQUE: After the administration of intravenous contrast, 2 mm thick sections acquired from the pulmonary api agustina to the posterior costophrenic angles. 3-dimensional maximum intensity projection (MIP) coronal a nd sagittal reformats were then acquired through the thorax. For radiation dose reduction, the follow ing was used: automated exposure control, adjustment of mA and/or kV according to patient size. COMPARISON: Chest x-ray 03/31/2020 FINDINGS: Image quality: Opacification of pulmonary arterial system is suboptimal for evaluation of distal bran ches. Pulmonary arteries: Suboptimal opacification of the pulmonary artery system is present. There is no c entral pulmonary emboli. However, there is segmental branches predominantly within the lower lobes bi laterally that demonstrate suspicious areas of central low attenuation. Questionable minimal appearan ce is noted in several distal segmental branches in the right upper lobe. Lungs and pleura: Lungs are clear. No pleural effusions or pneumothorax. Central and peripheral ai rways are patent. Mediastinum: Heart size is normal, without pericardial effusion. No mediastinal or hilar adenopathy . Thoracic aorta is normal in caliber and enhancement. Esophagus is normal in caliber, without hiat al hernia. Bones and chest wall: No suspicious bony lesions. Ribs and thoracic spine appear intact throughout. The thyroid is normal. No axillary or supraclavicular adenopathy. Abdomen: Visualized upper abdominal solid organs appear normal in the early arterial phase of enhanc ement. IMPRESSION: 1. No central pulmonary embolism. As noted above, opacification within the pulmonary artery system is considered suboptimal for definitive evaluation of embolism within the distal branches. However, the re are several segmental branches within the lower lobes as well as right upper lobes demonstrating c entral low attenuation raising suspicious for embolism. Reviewed by: Cee Milton MD on 03/31/2020 7:58 PM PST Approved by: Cee Milton MD on 03/31/2020 7:58 PM PST Station ID: [id number]
[2020-03-31] MEDS ORDERED: LORazepam 2 MG/ML VIAL IVP STA (22:09)
[2020-03-31 22:10] VITALS: BP 106/70
[2020-03-31] MEDS ORDERED: APIXABAN 5 MG TABLET PO STA (22:11)
--- NOTE | 2020-04-01 07:02 | Ultrasound Report ---
PROCEDURE: Duplex Ext Veins Bilateral INDICATIONS: Elsie Steele TECHNIQUE: Real-time imaging, as well as color and pulse Doppler interrogation, were performed of the deep veins of both legs from the inguinal ligament to the popliteal fossa. COMPARISON: None FINDINGS: The deep veins of the right and left lower extremities are normally compressible, and free of intraluminal thrombus. Color and pulse Doppler demonstrate normal phasic intravascular flow. Th ere is normal augmentation response to distal compression maneuver. IMPRESSION: No evidence of deep vein thrombosis involving the right or left lower extremities. Reviewed by: Bambi Kemp MD, PhD on 04/01/2020 7:00 AM PST Approved by: Bambi Kemp MD, PhD on 04/01/2020 7:00 AM PST Station ID: [id number]
== END 2020-03-31 22:42 | disposition home or self-care (01) ==
LOC: ED 15:54
DX: I26.94 Multiple subsegmental thrombotic pulmonary emboli without acute cor pulmonale (principal); Z82.49 Family history of ischemic heart disease and other diseases of the circulatory system; Z20.828 Contact with and (suspected) exposure to other viral communicable diseases
CPT/HCPCS: 0202U; 36415; 71045; 71275; 80053; 81001; 81025; 83690; 84484; 85025; 85379; 87070; 87430; 93005; 93970; 96361; 96374; 96375; 99284; 99285; A9270; J1170; J2060; Q9967

== ENCOUNTER 2020-04-03 11:56 | Outpatient (CLI) | payer BC, MEDICAID | END 2020-04-03 11:57 | disposition short-term general hospital (02) | LOC: EMS 11:56 | PROVIDERS: ATTEND Surgery | DX: M54.9 Dorsalgia, unspecified (principal) | CPT/HCPCS: A0425; A0427 ==

== ENCOUNTER 2020-04-07 19:34 | Emergency (ER) | payer BC, MEDICAID ==
[2020-04-07] MEDS ORDERED: SODIUM CHLORIDE 0.9% 1,000 ML IV STA ×2 (20:23→21:47)
[2020-04-07] MEDS ORDERED: MAG HYDROX/AL HYDROX/SIMETH 30 ML UDC PO STA ×2 (20:23→21:13)
[2020-04-07] MEDS ORDERED: LIDOCAINE VISCOUS 2% 15 ML UDC MM STA ×2 (20:23→21:13)
--- NOTE | 2020-04-07 20:26 | ED Physician Documentation ---
History of Present Illness - Stated complaint Stated Complaint: BACK PX/FEMALE - Chief complaint Chief Complaint: Abd Pain - History obtained from History obtained from: Patient - History of Present Illness Timing: How many weeks ago (2) - Additonal information Additional information: 25 y/o female with a history of depression and anxiety has developed a pain in her upper back with swallowing that has caused an 8 lb weight loss over the past week. The patient has been seen in [place] ED, ED and [facility] ED in the past 2 weeks. She has a history of pain in her upper back that is worse with swallowing and has led to a weight loss from not eating. She has recently been diagnosed with PE and she is on Eliquis. She has a history of anxiety and depression as well as alcoholism. She drinks beer. She called her primary and was instructed to take mylanta and nexium and she was not able to tolerate the pill. Review of Systems Constitutional: denies: Fever Eyes: denies: Decreased vision Ears: denies: Ear pain Nose: denies: Congestion Throat: denies: Sore throat Cardiac: denies: Chest pain / pressure, Palpitations, Pedal edema, Calf pain Respiratory: reports: Dyspnea. denies: Cough GI: denies: Abdominal Pain, Nausea, Vomiting : denies: Dysuria PD PAST MEDICAL HISTORY - Past Medical History Cardiovascular: Pulmonary embolism Respiratory: None Neuro: None Endocrine/Autoimmune: None GI: None : Incontinence HEENT: None Psych: Anxiety, ADD/ADHD Musculoskeletal: None Derm: None - Past Surgical History Past Surgical History: Yes HEENT: Tonsil/Adenoidectomy - Present Medications Home Medications: Ambulatory Orders Medication Instructions Recorded Confirmed Dextroamphetamine/Amphetamine 30 mg PO DAILY 04/22/19 04/24/19 [Adderall 30 mg Tablet] Apixaban [Eliquis] 5 mg PO BID #90 tablet 03/31/20 HYDROcod/ACETAM 5/325 [[place] 5/325] 1 each PO BID PRN #10 tablet 03/31/20 LORazepam [Ativan] 1 mg PO ONCE PRN #8 tablet 03/31/20 Esomeprazole Magnesium [Nexium] 20 mg PO DAILY #30 capsule. 04/07/20 LORazepam [Ativan] 1 mg PO Q6HR PRN #10 tablet 04/07/20 Sucralfate [Carafate] 1 gm PO ACHS #60 tablet 04/07/20 - Allergies Allergies/Adverse Reactions: Allergies Allergy/AdvReac Type Severity Reaction Status Date / Time amoxicillin Allergy Severe Unknown Verified 04/07/20 19:38 Penicillins Allergy Severe Unknown Verified 04/07/20 19:38 - Social History Does the pt smoke?: No Smoking Status: Never smoker Does the pt drink ETOH?: Yes Does the pt have substance abuse?: No - Immunizations Immunizations are current?: No Immunizations: TDAP >10years/unknown PD ED PE NORMAL - Vitals Vital signs reviewed: Yes (tachy and hypertensive with wide pulse pressure. 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, No motor deficit, No sensory deficit, Normal speech Eye Opening: Spontaneous Motor: Obeys Commands Verbal: Oriented GCS Score: 15 - Psych Psych: Normal mood, Normal affect Results - Vitals Vitals: Vital Signs - 24 hr 04/07/20 04/07/20 19:38 21:41 Temperature 36.7 C 36.6 C Heart Rate 130 H 111 H Respiratory 16 15 Rate Blood Pressure 134/41 H 111/80 O2 Saturation 100 100 Oxygen O2 Source Room air - Labs Labs: Laboratory Tests 04/07/20 04/07/20 04/07/20 19:50 19:50 20:32 WBC 5.7 RBC 4.29 Hgb 13.9 Hct 38.7 MCV 90.2 MCH 32.4 H MCHC 35.9 RDW 12.2 Plt Count 327 MPV 8.2 Neut # (Auto) 2.3 Lymph # (Auto) 2.5 [place] # (Auto) 0.7 Eos # (Auto) 0.1 Baso # (Auto) 0.0 Absolute Nucleated RBC 0.00 Nucleated RBC % 0.0 Sodium Potassium Chloride Carbon Dioxide Anion Gap BUN Creatinine Estimated GFR (MDRD) Glucose Calcium Total Bilirubin AST ALT Alkaline Phosphatase Total Protein Albumin Globulin Albumin/Globulin Ratio Lipase Urine Color YELLOW Urine Clarity HAZY Urine pH 6.0 Ur Specific [place] 1.010 Urine Protein NEGATIVE Urine Glucose (UA) NEGATIVE Urine Ketones TRACE Urine Occult Blood LARGE H Urine Nitrite NEGATIVE Urine Bilirubin NEGATIVE Urine Urobilinogen 0.2 (NORMAL) Ur Leukocyte Esterase NEGATIVE Urine RBC 6-10 H Urine WBC 0-3 Ur Squamous Epith Cells FEW Squamous Urine Bacteria Rare Ur Microscopic Review INDICATED Urine Culture Comments NOT INDICATED Urine HCG, Qual NEGATIVE Urine Opiates Screen NEGATIVE Ur Oxycodone Screen NEGATIVE Urine Methadone Screen NEGATIVE Ur Propoxyphene Screen NEGATIVE Ur Barbiturates Screen NEGATIVE Ur Tricyclics Screen POSITIVE H Ur Phencyclidine Scrn NEGATIVE Ur Amphetamine Screen POSITIVE H U Methamphetamines Scrn NEGATIVE U Benzodiazepines Scrn POSITIVE H Urine Cocaine Screen NEGATIVE U Cannabinoids Screen NEGATIVE Ethyl Alcohol 04/07/20 20:32 WBC RBC Hgb Hct MCV MCH MCHC RDW Plt Count MPV Neut # (Auto) Lymph # (Auto) [place] # (Auto) Eos # (Auto) Baso # (Auto) Absolute Nucleated RBC Nucleated RBC % Sodium 137 Potassium 3.5 Chloride 100 L Carbon Dioxide 26 Anion Gap 11.0 BUN 8 Creatinine 0.6 Estimated GFR (MDRD) 121 Glucose 94 Calcium 9.2 Total Bilirubin 0.7 AST 44 H ALT 46 Alkaline Phosphatase 56 Total Protein 7.1 Albumin 4.0 Globulin 3.1 Albumin/Globulin Ratio 1.3 Lipase 52 H Urine Color Urine Clarity Urine pH Ur Specific [place] Urine Protein Urine Glucose (UA) Urine Ketones Urine Occult Blood Urine Nitrite Urine Bilirubin Urine Urobilinogen Ur Leukocyte Esterase Urine RBC Urine WBC Ur Squamous Epith Cells Urine Bacteria Ur Microscopic Review Urine Culture Comments Urine HCG, Qual Urine Opiates Screen Ur Oxycodone Screen Urine Methadone Screen Ur Propoxyphene Screen Ur Barbiturates Screen Ur Tricyclics Screen Ur Phencyclidine Scrn Ur Amphetamine Screen U Methamphetamines Scrn U Benzodiazepines Scrn Urine Cocaine Screen U Cannabinoids Screen Ethyl Alcohol 5.8 Procedures - IVC sono (time) 2030 Bedside IVC sono: IVC measures (cm) (1.04), IVC collapsed c insp (cm) (complete), Dehydration (est 1.5 liter deficit) PD MEDICAL DECISION MAKING - ED course Complexity details: reviewed old records, reviewed results, re-evaluated patient, considered differential, d/w patient ED course: 25 y/o female with chief complaint of back pain with swallowing resulting in weight loss has improvement in her back pain with a GI cocktail. A second GI cocktail is administered and she has further improvement and she is fed in the ED with improvement in her symptoms. She is found to be dehydrated on the order of 1 and 1/2 L on interrogation of the inferior vena cava and she is administered saline. She is subsequently administered pantoprazole intravenously. The patient describes having similar symptoms in 2016 being seen in another emergency department and having a mildly elevated D-dimer and being told that she had some scar tissue in her lungs on her CT scan. I am questioning whether there is reason to continue this patient on Eliquis. The patient's clot burden is small and she has had bilateral duplex ultrasound which was negative. I have asked the patient to follow-up with her primary care doctor to consider either further consultation to determine the necessary use of the Eliquis or discontinuation with close follow up. It seems like in hind site that this patient may have had esophagitis as the underlying reason for presenting symptoms to 3 different ED's on 4 visits. With that idea, treatment of the esophagus with nexium and carafate may resolve the symptoms. The patient has ADHD and her histories are filled with concerns about serious potential illness and testing has otherwise been benign with the exception of the CT angiogram and this is a soft call on the pictures. Still a concern about clotting disorder. 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 Today despite not being able to eat or drink her blood alcohol is not zero--but close to zero. Departure - Departure Disposition: 01 Home, Self Care Clinical Impression: Esophagitis Condition: Stable Instructions: Esophagitis, ED GERD Follow-Up: VALERIE HUNG, MSN, MLT [Primary Care Provider] - Prescriptions: LORazepam [Ativan] 1 mg PO Q6HR PRN #10 tablet PRN Reason: Anxiety Sucralfate [Carafate] 1 gm PO ACHS #60 tablet Esomeprazole Magnesium [Nexium] 20 mg PO DAILY #30 capsule. Comments: Today it appears the cause of your back pain and pain with swallowing is related to an inflammation in your esophagus. Avoid alcohol, ibuprofen, aleve or excessively hot foods and take your medications as prescribed regularly. Once your esophagus has healed you may be able to stop these medications but take them for at least 2 weeks. For now continue the Eliquis. A follow up with hematology is in order to determine if you have an inherited clotting disorder before stopping the Eliquis.
[2020-04-07 20:39] LABS: MUDS CUTOFF CONCENTRATIONS CUTOFF CONC BELOW:
[2020-04-07 20:49] LABS: BILIRUBIN,URINE NEGATIVE (NEGATIVE); GLUCOSE, URINE (UA) NEGATIVE (NEGATIVE); KETONES,URINE (UA) TRACE mg/dL (NEGATIVE); LEUKOCYTE ESTERASE, URINE NEGATIVE (NEGATIVE); NITRITE,URINE NEGATIVE (NEGATIVE); OCCULT BLOOD,URINE LARGE (NEGATIVE); PROTEIN,URINE NEGATIVE (NEGATIVE); UROBILINOGEN,URINE 0.2 (NORMAL) E.U./dL (NORMAL)
[2020-04-07 20:51] LABS: BASOPHILS % (AUTO) 0.5 %; EOSINOPHILS # (AUTO) 0.1 10^3/uL (0.0-0.7); EOSINOPHILS % (AUTO) 1.6 %; HGB - HEMOGLOBIN 13.9 g/dL (12.0-16.0); LYMPHOCYTES # (AUTO) 2.5 10^3/uL (1.5-3.5); LYMPHOCYTES % (AUTO) 43.4 %; MEAN CORPUSCULAR HEMOGLOBIN 32.4 pg (27.0-31.0); MEAN CORPUSCULAR HGB CONC 35.9 g/dL (32.0-36.0); MEAN CORPUSCULAR VOLUME 90.2 fL (81.0-99.0); MEAN PLATELET VOLUME 8.2 fL (7.9-10.8); MONOCYTES # (AUTO) 0.7 10^3/uL (0.0-1.0); MONOCYTES % (AUTO) 12.7 %; NEUTROPHILS # (AUTO) 2.3 10^3/uL (1.5-6.6); NEUTROPHILS % (AUTO) 41.4 %; PLT - PLATELET COUNT 327 10^3/uL (130-450); RED BLOOD COUNT 4.29 10^6/uL (4.20-5.40); RED CELL DISTRIBUTION WIDTH 12.2 % (12.0-15.0); WHITE BLOOD COUNT 5.7 x10^3/uL (4.8-10.8)
[2020-04-07 20:54] LABS: CLARITY,URINE HAZY (CLEAR)
[2020-04-07 20:57] LABS: ALBUMIN/GLOBULIN RATIO 1.3 (1.0-2.2); BILIRUBIN,TOTAL 0.7 mg/dL (0.2-1.0); CALCIUM 9.2 mg/dL (8.5-10.3); CREATININE 0.6 mg/dL (0.4-1.0); TOTAL PROTEIN 7.1 g/dL (6.7-8.2)
[2020-04-07 20:58] LABS: HCG UR QUAL NEGATIVE
[2020-04-07 21:00] LABS: BACTERIA,URINE Rare /HPF (None Seen); SQUAMOUS EPITHELIAL CELL,UR FEW Squamous (<= Few)
[2020-04-07 21:07] LABS: AMPHETAMINE SCREEN,URINE POSITIVE (NEGATIVE); COCAINE SCREEN URINE NEGATIVE (NEGATIVE); METHAMPHETAMINES SCREEN, URINE NEGATIVE (NEGATIVE); OPIATE SCREEN, URINE NEGATIVE (NEGATIVE)
[2020-04-07 21:08] LABS: BENZODIAZEPINES SCREEN, URINE POSITIVE (NEGATIVE); METHADONE SCREEN, URINE NEGATIVE (NEGATIVE); OXYCODONE SCREEN, URINE NEGATIVE (NEGATIVE); PROPOXYPHENE SCREEN, URINE NEGATIVE (NEGATIVE); TRICYCLIC ANTIDEPRESSANT,URINE POSITIVE (NEGATIVE)
[2020-04-07] MEDS ORDERED: SUCRALFATE 1 GM/10 ML UDC PO STA (21:13)
[2020-04-07] MEDS ORDERED: PANTOPRAZOLE 40 MG VIAL IVP STA (21:47)
[2020-04-07 23:13] VITALS: BP 108/65
== END 2020-04-07 23:13 | disposition home or self-care (01) ==
LOC: ED 19:34
DX: K20.90 Esophagitis, unspecified without bleeding (principal); E86.0 Dehydration; I26.99 Other pulmonary embolism without acute cor pulmonale; Z79.01 Long term (current) use of anticoagulants
CPT/HCPCS: 36415; 80053; 80306; 80320; 81001; 81025; 83690; 85025; 96361; 96374; 99283; 99284; A9270; 81003; 87086

== ENCOUNTER 2020-04-09 08:00 | Outpatient (CLI) | payer BC, MEDICAID | END 2020-04-09 23:59 | disposition home or self-care (01) | LOC: LAB.R 08:00 | PROVIDERS: ATTEND Family Medicine | DX: I26.94 Multiple subsegmental thrombotic pulmonary emboli without acute cor pulmonale (principal); Z20.828 Contact with and (suspected) exposure to other viral communicable diseases ==

== ENCOUNTER 2020-06-03 12:55 | Outpatient (CLI) | payer OTHER ==
[2020-06-03 18:10] LABS: BASOPHILS # (AUTO) 0.1 10^3/uL (0.0-0.1); BASOPHILS % (AUTO) 0.7 %; EOSINOPHILS # (AUTO) 0.2 10^3/uL (0.0-0.7); HGB - HEMOGLOBIN 13.2 g/dL (12.0-16.0); LYMPHOCYTES # (AUTO) 2.6 10^3/uL (1.5-3.5); LYMPHOCYTES % (AUTO) 33.7 %; MEAN CORPUSCULAR HEMOGLOBIN 31.4 pg (27.0-31.0); MEAN CORPUSCULAR HGB CONC 33.1 g/dL (32.0-36.0); MEAN PLATELET VOLUME 8.8 fL (7.9-10.8); MONOCYTES # (AUTO) 0.5 10^3/uL (0.0-1.0); MONOCYTES % (AUTO) 6.8 %; NEUTROPHILS # (AUTO) 4.3 10^3/uL (1.5-6.6); NEUTROPHILS % (AUTO) 55.7 %; PLT - PLATELET COUNT 340 10^3/uL (130-450); RED CELL DISTRIBUTION WIDTH 12.3 % (12.0-15.0); WHITE BLOOD COUNT 7.7 x10^3/uL (4.8-10.8)
[2020-06-03 18:24] LABS: ALBUMIN 4.1 g/dL (3.2-5.5); ALBUMIN/GLOBULIN RATIO 1.5 (1.0-2.2); BILIRUBIN,TOTAL 0.8 mg/dL (0.2-1.0); CALCIUM 9.3 mg/dL (8.5-10.3); CREATININE 0.6 mg/dL (0.4-1.0); TOTAL PROTEIN 6.9 g/dL (6.7-8.2)
== END 2020-06-03 12:56 | disposition home or self-care (01) ==
LOC: LAB.WCP 12:55
PROVIDERS: ATTEND Nurse Practitioner Family
DX: R74.8 Abnormal levels of other serum enzymes (principal); F10.10 Alcohol abuse, uncomplicated
CPT/HCPCS: 36415; 80053; 85025

== ENCOUNTER 2020-06-28 18:42 | Emergency (ER) | payer OTHER, MEDICAID ==
--- NOTE | 2020-06-28 19:16 | ED Physician Documentation ---
PD HPI CHEST PAIN - Stated complaint Stated Complaint: CHEST TIGHTNESS - Chief complaint Chief Complaint: Cardiac - History obtained from History obtained from: Patient - Additional information Additional information: She had an unprovoked PE back in March. She has been on Eliquis since. She did miss 1 dose this morning because she ran out, otherwise she has been very compliant. She went for a run today. It was her first run since she had the PE. During the run she developed chest burning. She wondered if that might just be from running and she rested for a few hours and it has defervesced a bit but not abated. Review of Systems Constitutional: denies: Fever, Chills Cardiac: reports: Chest pain / pressure. denies: Palpitations, Pedal edema, Calf pain Respiratory: denies: Dyspnea, Cough PD PAST MEDICAL HISTORY - Past Medical History Past Medical History: Yes Cardiovascular: Pulmonary embolism Respiratory: None Neuro: None Endocrine/Autoimmune: None GI: None : Incontinence HEENT: None Psych: Anxiety, ADD/ADHD Musculoskeletal: None Derm: None - Past Surgical History Past Surgical History: Yes HEENT: Tonsil/Adenoidectomy - Present Medications Home Medications: Ambulatory Orders Medication Instructions Recorded Confirmed Dextroamphetamine/Amphetamine 30 mg PO DAILY 04/22/19 06/09/20 [Adderall 30 mg Tablet] Apixaban [Eliquis] 5 mg PO BID #90 tablet 03/31/20 06/09/20 HYDROcod/ACETAM 5/325 [[place] 5/325] 1 each PO BID PRN #10 tablet 03/31/2006/09 LORazepam [Ativan] 1 mg PO ONCE PRN #8 tablet 03/31/20 06/09/20 Esomeprazole Magnesium [Nexium] 20 mg PO DAILY #30 capsule. 04/07/20 06/09/20 LORazepam [Ativan] 1 mg PO Q6HR PRN #10 tablet 04/07/20 06/09/20 Sucralfate [Carafate] 1 gm PO ACHS #60 tablet 04/07/20 06/09/20 - Allergies Allergies/Adverse Reactions: Allergies Allergy/AdvReac Type Severity Reaction Status Date / Time amoxicillin Allergy Severe Unknown Verified 06/28/20 18:54 Penicillins Allergy Severe Unknown Verified 06/28/20 18:54 - Social History Does the pt smoke?: No Smoking Status: Never smoker Does the pt drink ETOH?: Yes Does the pt have substance abuse?: No - Immunizations Immunizations are current?: No Immunizations: TDAP >10years/unknown - POLST Patient has POLST: No PD ED PE NORMAL - Vitals Vital signs reviewed: Yes - General General: Alert and oriented X 3, No acute distress - Neck Neck: Supple, no meningeal sign, No bony TTP - Cardiac Cardiac: RRR, No murmur - Respiratory Respiratory: No respiratory distress, Clear bilaterally - Abdomen Abdomen: Non tender - Extremities Extremities: No edema, No calf tenderness / cord - Neuro Neuro: Alert and oriented X 3, Normal speech Results - Vitals Vitals: Vital Signs - 24 hr 06/28/20 06/28/20 06/28/20 18:55 19:03 19:32 Temperature 37.1 C Heart Rate 90 100 104 H Respiratory 16 18 24 Rate Blood Pressure 92/68 92/63 91/63 O2 Saturation 99 98 100 06/28/20 20:00 Temperature Heart Rate 95 Respiratory 18 Rate Blood Pressure 91/62 O2 Saturation 99 Oxygen O2 Source Room air - EKG (time done) 1858 Rate: Rate (enter#) (92) Rhythm: NSR [place]: Normal Intervals: Normal MD QRS: Normal Ischemia: Normal ST segments - Labs Labs: Laboratory Tests 06/28/20 06/28/20 19:45 19:45 D-Dimer < 200.0 L Sodium 142 Potassium 3.6 Chloride 103 Carbon Dioxide 24 Anion Gap 15.0 H BUN 14 Creatinine 0.6 Estimated GFR (MDRD) 121 Glucose 89 Calcium 9.3 PD MEDICAL DECISION MAKING - ED course ED course: 25 yo woman with history of PE but compliant with anticoagulation had chest pain after running today. It was the first time she ran in several months. D-dimer was negative and she appears well with normal vital signs and unremarkable EKG. She requested an Ativan prior to discharge. Departure - Departure Disposition: 01 Home, Self Care Clinical Impression: Burning chest pain Condition: Good Record reviewed to determine appropriate education?: Yes Instructions: ED Chest Pain NonCardiac Comments: d-Dimer is negative, this makes recurrent PE exceptionally unlikely especially in light of normal vitals and continued compliance with your blood thinner. Return if worse.
[2020-06-28 20:01] VITALS: BP 91/62
[2020-06-28 20:10] LABS: CALCIUM 9.3 mg/dL (8.5-10.3); CREATININE 0.6 mg/dL (0.4-1.0); POTASSIUM 3.6 mmol/L (3.5-5.0)
[2020-06-28] MEDS ORDERED: LORazepam 1 MG TABLET PO STA (20:20)
== END 2020-06-28 20:30 | disposition home or self-care (01) ==
LOC: ED 18:42
DX: R07.89 Other chest pain (principal); Z86.711 Personal history of pulmonary embolism; Z79.01 Long term (current) use of anticoagulants
CPT/HCPCS: 36415; 80048; 85379; 93005; 99283; 99284; J8499

== ENCOUNTER 2020-09-10 13:47 | Outpatient (CLI) | payer OTHER, MEDICAID ==
[2020-09-10 20:52] LABS: BILIRUBIN,URINE NEGATIVE (NEGATIVE); GLUCOSE, URINE (UA) NEGATIVE (NEGATIVE); KETONES,URINE (UA) NEGATIVE (NEGATIVE); LEUKOCYTE ESTERASE, URINE TRACE (NEGATIVE); NITRITE,URINE NEGATIVE (NEGATIVE); OCCULT BLOOD,URINE NEGATIVE (NEGATIVE); PH,URINE 6.5 PH (5.0-7.5); PROTEIN,URINE NEGATIVE (NEGATIVE); UROBILINOGEN,URINE 0.2 (NORMAL) E.U./dL (NORMAL)
[2020-09-10 20:53] LABS: CLARITY,URINE CLEAR (CLEAR)
[2020-09-10 21:08] LABS: BACTERIA,URINE Few /HPF (None Seen); RBC,URINE None Seen /HPF (0-5); SQUAMOUS EPITHELIAL CELL,UR MOD Squamous (<= Few); WBC,URINE 0-3 /HPF (0-5)
[2020-09-10 22:45] LABS: BACTERIAL VAGINOSIS DNA NEGATIVE (NEGATIVE); CANDIDA GLABRATA DNA NEGATIVE (NEGATIVE); CANDIDA GROUP DNA NEGATIVE (NEGATIVE); CANDIDA KRUSEI DNA NEGATIVE (NEGATIVE); TRICHOMONAS VAGINALIS DNA NEGATIVE (NEGATIVE)
[2020-09-10 23:39] LABS: CHLAMYDIA TRACHOMATIS DNA NEGATIVE (NEGATIVE); NEISSERIA GONORRHOEAE DNA NEGATIVE (NEGATIVE); TRICHOMONAS VAGINALIS DNA NEGATIVE (NEGATIVE)
== END 2020-09-10 23:59 | disposition home or self-care (01) ==
LOC: LAB.N 13:47
DX: N89.8 Other specified noninflammatory disorders of vagina (principal)
CPT/HCPCS: 81001; 87086; 87491; 87591; 87661; 87801

== ENCOUNTER 2020-09-18 16:02 | Outpatient (CLI) | payer OTHER, MEDICAID ==
[2020-09-18 16:29] LABS: ALBUMIN 4.6 g/dL (3.2-5.5); ALBUMIN/GLOBULIN RATIO 1.4 (1.0-2.2); BILIRUBIN,TOTAL 1.2 mg/dL (0.2-1.0); CALCIUM 9.7 mg/dL (8.5-10.3); CREATININE 0.6 mg/dL (0.4-1.0); POTASSIUM 4.1 mmol/L (3.5-5.0); TOTAL PROTEIN 7.8 g/dL (6.7-8.2)
== END 2020-09-18 16:03 | disposition home or self-care (01) ==
LOC: LAB 16:02
PROVIDERS: ATTEND Nurse Practitioner Family
DX: F10.10 Alcohol abuse, uncomplicated (principal)
CPT/HCPCS: 36415; 80053

== ENCOUNTER 2020-10-25 14:35 | Outpatient (CLI) | payer OTHER, MEDICAID | END 2020-10-25 23:59 | disposition home or self-care (01) | LOC: LAB 14:35 | DX: I26.94 Multiple subsegmental thrombotic pulmonary emboli without acute cor pulmonale (principal) | CPT/HCPCS: 36415; 85379 ==

== ENCOUNTER 2020-10-27 21:45 | Emergency (ER) | payer OTHER, MEDICAID ==
--- OUTSIDE RECORDS SUMMARY | 2020-10-27 21:49 | EXTERNAL MEDICAL SUMMARY RPT | Continuity of Care Document ---
:1995 Demographics Phone Unavailable Preferred Language Slovak Marital Status Unknown Islam Affiliation Unknown Race Unknown Ethnic Group Unknown Author Organization [place] Address [address] [phone] Phone Care Team Providers Name Role Phone Kaplan Unavailable Unavailable Allergies Encounters Medications Problems Procedures date description facility 20200827 [facility] Results Vital Signs date measurement value source 20200827 weight_standard 58.97 lb 20200827 weight_metric 26.75 kg 20200827 temperature_standard 99 F 20200827 temperature_standard 98.7 F 20200827 temperature_metric 37.22 C 20200827 temperature_metric 37.06 C 20200827 respiration_rate 15 /min 20200827 respiration_rate 14 /min 20200827 height_standard 63 in 20200827 height_metric 160.02 cm [id number] heart_rate 92 /min 20200827 BP_systolic 128 mm[Hg] 20200827 BP_systolic 118 mm[Hg] 20200827 BP_diastolic 82 mm[Hg] 20200827 BP_diastolic 81 mm[Hg] 20200827 BMI 23.0 kg/m2
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
--- OUTSIDE RECORDS SUMMARY | 2020-10-27 22:05 | EXTERNAL MEDICAL SUMMARY RPT | Continuity of Care Document ---
:1995 Demographics Phone Unavailable Preferred Language Tajik Marital Status Unknown Bahai Affiliation Unknown Race Unknown Ethnic Group Unknown Author Organization [place] Address [address] [phone] Phone Care Team Providers Name Role Phone Kaplan Unavailable Unavailable Allergies Encounters Medications Problems Procedures date description facility 20200827 [facility] Results Vital Signs date measurement value source 20200827 weight_standard 58.97 lb 20200827 weight_metric 26.75 kg 20200827 temperature_standard 99 F 20200827 temperature_standard 98.7 F 20200827 temperature_metric 37.22 C 20200827 temperature_metric 37.06 C 20200827 respiration_rate 15 /min 20200827 respiration_rate 14 /min 20200827 height_standard 63 in 20200827 height_metric 160.02 cm [id number] heart_rate 92 /min 20200827 BP_systolic 128 mm[Hg] 20200827 BP_systolic 118 mm[Hg] 20200827 BP_diastolic 82 mm[Hg] 20200827 BP_diastolic 81 mm[Hg] 20200827 BMI 23.0 kg/m2
[2020-10-27 23:44] VITALS: BP 104/72
--- NOTE | 2020-10-28 09:59 | CT Report ---
PROCEDURE: HEAD WO INDICATIONS: head injury, on blood thinner TECHNIQUE: Noncontrast 4.5 mm thick angled axial sections acquired from the foramen magnum to the vertex. For r adiation dose reduction, the following was used: automated exposure control, adjustment of mA and/or kV according to patient size. COMPARISON: None. FINDINGS: Image quality: Excellent. CSF spaces: Basal cisterns are patent. No extra-axial fluid collections. Ventricles are normal in size and shape. Brain: No midline shift. No intracranial masses or hemorrhage. Hawley-white matter interface is norm al. Skull and face: Calvarium and visualized facial bones are intact, without suspicious lesions. Sinuses: Visualized sinuses and mastoids are clear. IMPRESSION: Head CT exam. No significant discrepancy with the patient transport orderly radiology preliminary interpretation. Reviewed by: Delmi Castellon MD on 10/28/2020 9:58 AM PDT Approved by: Delmi Castellon MD on 10/28/2020 9:58 AM PDT Station ID: [id number]
== END 2020-10-27 23:49 | disposition home or self-care (01) ==
LOC: ED 21:45
DX: S09.90XA Unspecified injury of head, initial encounter (principal); S00.81XA Abrasion of other part of head, initial encounter; X83.8XXA Intentional self-harm by other specified means, initial encounter; F41.9 Anxiety disorder, unspecified; Z86.711 Personal history of pulmonary embolism; Z79.01 Long term (current) use of anticoagulants
CPT/HCPCS: 99282; 99284